=== PATIENT | female | born 1975 | race Caucasian/White ===

== ENCOUNTER 2017-02-04 19:56 | Emergency (ER) | payer MEDICAID ==
[~2017-02-04] VITALS: Ht 160 cm; Wt 89.8 kg
[2017-02-04 20:10] VITALS: BP_SYST 152
[2017-02-04 21:00] VITALS: BP_SYST 152
== END 2017-02-04 21:00 | disposition home or self-care (01) ==
LOC: SED 19:56
DX: B85.1 Pediculosis due to Pediculus humanus corporis (principal); B85.0 Pediculosis due to Pediculus humanus capitis; F17.210 Nicotine dependence, cigarettes, uncomplicated; Z71.6 Tobacco abuse counseling
CPT/HCPCS: 99283

== ENCOUNTER 2017-10-08 18:31 | Emergency (ER) | payer MEDICAID ==
[~2017-10-08] VITALS: Ht 165.1 cm; Wt 79.4 kg
[2017-10-08 18:52] VITALS: BP_SYST 126
--- NOTE | 2017-10-08 19:09 | NUR ---
Patient triaged and placed in waiting room. VSS and patient appears in no acute distress at this time. Awaiting available bed, and MD notified of need for MSE.
--- NOTE | 2017-10-08 20:00 | NUR ---
Patient called for bed placement, unable to find patient in ED waiting room.
--- NOTE | 2017-10-08 20:10 | NUR ---
Patient called for bed placement, unable to find patient in ED Waiting room.
--- NOTE | 2017-10-08 20:15 | NUR ---
Patient called for bed placement three times. Unable to find patient in the ED waiting room. Patient LWBS.
== END 2017-10-08 20:15 | disposition left against medical advice (07) ==
LOC: SED 18:31
DX: R20.0 Anesthesia of skin (principal); Z53.21 Procedure and treatment not carried out due to patient leaving prior to being seen by health care provider

== ENCOUNTER 2018-06-16 18:24 | Emergency (ER) | payer MEDICAID ==
[~2018-06-16] VITALS: Ht 160 cm; Wt 104.3 kg
[2018-06-16 18:25] VITALS: BP_SYST 163
[2018-06-16 20:53] VITALS: BP_SYST 159
== END 2018-06-16 20:53 | disposition home or self-care (01) ==
LOC: SED 18:24
DX: S40.862A Insect bite (nonvenomous) of left upper arm, initial encounter (principal); S40.861A Insect bite (nonvenomous) of right upper arm, initial encounter; M21.372 Foot drop, left foot; W57.XXXA Bitten or stung by nonvenomous insect and other nonvenomous arthropods, initial encounter; Y93.89 Activity, other specified; Y92.89 Other specified places as the place of occurrence of the external cause; Y99.8 Other external cause status
CPT/HCPCS: 99283